=== PATIENT | male | born 1985 | race Caucasian/White ===

== ENCOUNTER 2021-08-14 12:06 | Emergency (ER) | payer OTHER ==
[~2021-08-14] VITALS: Ht 188 cm; Wt 88.5 kg
[2021-08-14] MEDS ORDERED: DICLOFENAC35 MG PO (14:57)
== END 2021-08-14 15:38 | disposition home or self-care (01) ==
LOC: ER 14:44
DX: S93.491A Sprain of other ligament of right ankle, initial encounter (principal); S93.691A Other sprain of right foot, initial encounter; W18.39XA Other fall on same level, initial encounter; Y92.89 Other specified places as the place of occurrence of the external cause; K21.9 Gastro-esophageal reflux disease without esophagitis
CPT/HCPCS: 99283